=== PATIENT | female | born 1945 ===

== ENCOUNTER 2018-09-12 07:59 | Outpatient (CLI) | payer MEDICARE, OTHER ==
--- NOTE | 2018-09-13 08:54 | Mammography Report ---
Reason: SCREENING MAMMO Procedure Date: 09/12/2018 Accession Number: [id number] / [id number] Procedure: KENNETH - Screening Mammo w/Wilbur CPT Code: FULL RESULT: EXAM: Screening Mammo w/Wilbur DATE: 09/12/2018 8:54 AM CLINICAL HISTORY: Screening. Family history breast cancer in mother at age 71 history of bilateral benign excisional biopsies. No personal history of breast cancer reported. TECHNIQUE: Bilateral CC and MLO views were obtained. COMPARISON: 08/22/2016 through 04/09/2013 FINDINGS: The breasts demonstrate heterogeneously dense fibroglandular parenchyma bilaterally. Bilateral breasts: There are no suspicious masses, calcifications or areas of distortion. IMPRESSION: Negative examination RECOMMENDATION: Routine annual screening unless otherwise clinically indicated. BI-RADS CATEGORY 1: Negative STANDARD QUALIFYING STATEMENTS: 1. This examination was not reviewed with the aid of Computer-Aided Detection (CAD). 2. A negative or benign imaging report should not preclude biopsy if clinically suspicious findings are present. 3. Dense breasts may obscure an underlying neoplasm. 4. This examination was reviewed with the aid of 3D breast imaging (tomosynthesis).
== END 2018-09-12 08:00 | disposition home or self-care (01) ==
LOC: DI 07:59
DX: Z12.31 Encounter for screening mammogram for malignant neoplasm of breast (principal); Z80.3 Family history of malignant neoplasm of breast
CPT/HCPCS: 77063; 77067

== ENCOUNTER 2023-04-02 15:54 | Emergency (ER) | payer MEDICARE, OTHER ==
[2023-04-02] MEDS ORDERED: NAPROXEN 250 MG TABLET PO STA (16:35)
[2023-04-02] MEDS ORDERED: BUFFERED LIDOCAINE 10 ML SYRINGE SUBQ STA (16:35)
[2023-04-02] MEDS ORDERED: TETANUS/DIPHTHERIA/PERTUSSIS 0.5 ML SYRINGE IM ONE (16:35)
--- NOTE | 2023-04-02 16:36 | ED Physician Documentation ---
History of Present Illness - Stated complaint Stated Complaint: GLF - Chief complaint Chief Complaint: General - History obtained from History obtained from: Patient (78-year-old woman with history of hypertension had a trip and fall going down her steps outside today and hit her head with a laceration on the railing of her steps and has scrapes on both knees. Tetanus is unknown.) PD PAST MEDICAL HISTORY - Allergies Allergies/Adverse Reactions: Allergies Allergy/AdvReac Type Severity Reaction Status Date / Time iodine Allergy Hives Verified 04/02/23 16:09 latex Allergy Hives Verified 04/02/23 16:09 PD ED PE NORMAL - Vitals Vital signs reviewed: Yes - General General: Alert and oriented X 3, No acute distress - HEENT HEENT: PERRL, EOMI, Other (3 cm laceration on the right upper forehead) - Neck Neck: Supple, no meningeal sign, No bony TTP - Back Back: No CVA TTP, No spinal TTP - Derm Derm: Normal color, Warm and dry - Extremities Extremities: Other (Scrapes on both knees but no tenderness or limited range of motion of either.) - Neuro Neuro: Alert and oriented X 3, Normal speech Eye Opening: Spontaneous Motor: Obeys Commands Verbal: Oriented GCS Score: 15 Results - Vitals Vitals: Vital Signs - 24 hr 04/02/23 04/02/23 16:09 16:35 Temperature 36.4 C L Heart Rate 67 90 Respiratory 16 16 Rate Blood Pressure 179/82 H 208/99 H O2 Saturation 97 96 Oxygen O2 Source Room air - Rads (name of study) CT of the head without contrast is unremarkable with no sign of trauma. Relevant Findings:: Final report received, EMP independent interpretation of test Procedures - Laceration (location) Right forehead Length in cm: 3 Wound type: Linear Neurovascular status: Sensory intact, Motor intact Anesthesia: Lidocaine 1%, With bicarb Wound preparation: Irrigated copiously NS Skin layer closure: Nylon, Interrupted, Size #-0 - enter number (5 oh), Sutures - enter # (5) Other: Patient tolerated well, No complications, Neurovascular intact, Tetanus booster given Departure - Departure Disposition: 01 Home, Self Care Clinical Impression: Fall Qualifiers: Encounter type: initial encounter Qualified Code(s): W19.XXXA - Unspecified fall, initial encounter Head injury Qualifiers: Encounter type: initial encounter Qualified Code(s): S09.90XA - Unspecified injury of head, initial encounter Forehead laceration Qualifiers: Encounter type: initial encounter Qualified Code(s): S01.81XA - Laceration without foreign body of other part of head, initial encounter Condition: Good Record reviewed to determine appropriate education?: Yes Instructions: ED Head Injury Closed, ED Laceration Facial Sutr Tape Comments: Come back for any signs of infection which would include: Redness, swelling, drainage, increased pain, or fevers. You can wash it soap and water. Keep it covered and moist with bacitracin ointment which is available over the counter; avoid neosporin. Follow-up with your physician in about [address] for suture removal CT of the head was without evidence of traumatic findings.
--- NOTE | 2023-04-02 17:41 | CT Report ---
PROCEDURE: HEAD WO INDICATIONS: head inj TECHNIQUE: Noncontrast 4.5 mm thick angled axial sections acquired from the foramen magnum to the vertex. For r adiation dose reduction, the following was used: automated exposure control, adjustment of mA and/or kV according to patient size. COMPARISON: None. FINDINGS: Image quality: Excellent. CSF spaces: Basal cisterns are patent. No extra-axial fluid collections. Ventricles are normal in size and shape. Brain: No midline shift. No intracranial masses or hemorrhage. Tee-white matter interface is norm al. Skull and face: Calvarium and visualized facial bones are intact, without suspicious lesions. Sinuses: Visualized sinuses and mastoids are clear. IMPRESSION: 1. No acute intracranial abnormality. 2. Microvascular ischemic disease and age-related cerebral volume loss. Reviewed by: Elijah Juarez on 04/02/2023 4:40 PM JAIRON Approved by: Elijah Juarez on 04/02/2023 4:40 PM [email or web address] Station ID: [id number]
[2023-04-02 18:32] VITALS: BP 195/92
== END 2023-04-02 18:28 | disposition home or self-care (01) ==
LOC: ED 15:54
DX: S09.90XA Unspecified injury of head, initial encounter (principal); S01.81XA Laceration without foreign body of other part of head, initial encounter; W10.9XXA Fall (on) (from) unspecified stairs and steps, initial encounter; I10 Essential (primary) hypertension; Z23 Encounter for immunization
CPT/HCPCS: 12013; 70450; 90471; 90715; 99284; A9270

== ENCOUNTER 2023-04-09 11:49 | Emergency (ER) | payer MEDICARE, OTHER ==
[2023-04-09 12:08] VITALS: BP 162/79
--- NOTE | 2023-04-09 12:20 | ED Physician Documentation ---
History of Present Illness - Stated complaint Stated Complaint: STITCH REMOVAL - Chief complaint Chief Complaint: Laceration - Additonal information Additional information: Here for stitch removal. Seen a week ago after ground-level fall. Had 6 stiches placed in the right forehead. Has been doing well no fevers further falls headache nausea or vomiting Review of Systems Skin: reports: Laceration (s) PD PAST MEDICAL HISTORY - Allergies Allergies/Adverse Reactions: Allergies Allergy/AdvReac Type Severity Reaction Status Date / Time iodine Allergy Hives Verified 04/02/23 16:09 latex Allergy Hives Verified 04/02/23 16:09 shrimp Allergy Hives Verified 04/09/23 12:03 PD ED PE NORMAL - General General: Alert and oriented X 3, No acute distress - HEENT HEENT: Other (Well-healed 3 and half centimeter laceration diagonal right upper forehead near the hairline. Well approximated. Mild surrounding ecchymosis but no drainage or erythema) Results - Vitals Vitals: Vital Signs - 24 hr 04/09/23 12:00 Temperature 36.5 C Heart Rate 70 Respiratory 16 Rate Blood Pressure 162/79 H O2 Saturation 98 Oxygen O2 Source Room air PD Medical Decision Making - ED course Complexity details: d/w patient ED course: 6 sutures easily removed at the bedside. Wound appears to have healed well. Routine care and emergent return precautions otherwise discussed Departure - Departure Disposition: 01 Home, Self Care Clinical Impression: Encounter for removal of sutures Comments: Your laceration has healed well. I recommend that you try and prevent exposure of the sun to it over the next several months. Apply thin layer of bacitracin or antibiotic ointment to the wound. Return for any concerns of infection
== END 2023-04-09 12:36 | disposition home or self-care (01) ==
LOC: ED 11:49
DX: Z48.02 Encounter for removal of sutures (principal); S01.81XD Laceration without foreign body of other part of head, subsequent encounter
CPT/HCPCS: 99281; 99282